=== PATIENT | female | born 1975 | race Caucasian/White ===

== ENCOUNTER 2023-08-18 11:02 | Inpatient (IN) | payer OTHER, BC ==
[~2023-08-18] VITALS: Ht 175.3 cm; Wt 96.8 kg
[2023-08-18] MEDS ORDERED: LOSA50TA28 PO (11:17)
[2023-08-18] MEDS ORDERED: LEVO137T2 PO (11:17)
[2023-08-18 11:22] LABS: BASO % 0.6 % (0.0-1.0); EOS # 0.2 10^3/uL (0.0-0.5); HEMATOCRIT 37.1 % (36.0-47.0); HEMOGLOBIN 12.2 g/dl (12.0-15.5); LYMPH # 1.1 10^3/uL (1.5-5.0); LYMPH % 21.4 % (24.0-44.0); MEAN CORPUSCULAR HEMOGLOBIN 28.2 pg (27.0-33.0); MEAN CORPUSCULAR HGB CONC 32.9 g/dl (32.0-36.5); MEAN CORPUSCULAR VOLUME 85.7 fl (80.0-96.0); MONO # 0.4 10^3/uL (0.0-0.8); MONO % 7.1 % (2.0-8.0); NEUTROPHILS # 3.6 10^3/uL (1.5-8.5); NEUTROPHILS % 67.7 % (36.0-66.0); PLATELET COUNT, AUTOMATED 198 10^3/uL (150-450); RED BLOOD COUNT 4.33 10^6/uL (4.00-5.40); WHITE BLOOD COUNT 5.3 10^3/uL (4.0-10.0)
[2023-08-18 11:35] LABS: INR 1.11; PROTHROMBIN TIME 13.9 SECONDS (12.5-14.5)
[2023-08-18 11:36] LABS: PARTIAL THROMBOPLASTIN TIME 26.1 SECONDS (24.8-34.2)
[2023-08-18 11:50] LABS: CK-MB VALUE MASS 1.5 NG/ML (<3.6); LIPASE 36 U/L (12-53)
[2023-08-18 11:51] LABS: AMYLASE 62 U/L (30-118); CPK CREATINE PHOSPHOKINASE 95 U/L (34-145); MB/CK RELATIVE INDEX 1.57 (< OR =4)
[2023-08-18 11:52] LABS: ALBUMIN 3.8 G/DL (3.2-5.2); ALKALINE PHOSPHATASE 94 U/L (46-116); ALT/SGPT 25 U/L (7.0-40); AST/SGOT 22 U/L (<34); BILIRUBIN,DIRECT 0.3 MG/DL (<0.4); BILIRUBIN,TOTAL 0.8 MG/DL (0.3-1.2); BLOOD UREA NITROGEN 13 MG/DL (9-23); CALCIUM LEVEL 8.4 MG/DL (8.5-10.1); CARBON DIOXIDE LEVEL 27 MMOL/L (20-31); CHLORIDE LEVEL 111 MMOL/L (98-107); CREATININE FOR GFR 0.74 MG/DL (0.55-1.30); GLOMERULAR FILTRATION RATE > 60.0 (>58); GLUCOSE, FASTING 83 MG/DL (60-100); MAGNESIUM LEVEL 2.3 MG/DL (1.8-2.4); POTASSIUM SERUM 4.1 MMOL/L (3.5-5.1); SODIUM LEVEL 142 MMOL/L (136-145); TOTAL PROTEIN 6.5 G/DL (5.7-8.2)
[2023-08-18] MEDS ORDERED: ACETAMINOPHEN TAB 650MG DOSE (2X325MG) PO PRN (12:35)
[2023-08-18 12:45] LABS: RSV AMPLIFICATION NEGATIVE (NEGATIVE)
[2023-08-18] MEDS ORDERED: MED REC IN PROGRESS XX SCH (13:00)
[2023-08-18] MEDS ORDERED: MED REC CURRENTLY UNOBTAINABLE XX SCH (13:35)
[2023-08-18] MEDS ORDERED: HOME MED LIST COMPLETE! XX SCH (14:15)
[2023-08-18 16:50] VITALS: BP 138/91; TEMP 98.4; O2SAT 98
[2023-08-18 20:25] VITALS: BP 117/63; TEMP 97.4; O2SAT 95
[2023-08-18 23:34] VITALS: BP 108/55; TEMP 97.3; O2SAT 99
[2023-08-19 04:27] VITALS: BP 118/74; TEMP 98; O2SAT 97
[2023-08-19] MEDS: LEVOTHYROXINE 137MCG TABLET (0.137MG) PO SCH (05:50)
[2023-08-19 05:58] LABS: HEMATOCRIT 34.6 % (36.0-47.0); HEMOGLOBIN 11.5 g/dl (12.0-15.5)
[2023-08-19 06:32] LABS: BLOOD UREA NITROGEN 18 MG/DL (9-23); CALCIUM LEVEL 8.4 MG/DL (8.5-10.1); CARBON DIOXIDE LEVEL 23 MMOL/L (20-31); CHLORIDE LEVEL 107 MMOL/L (98-107); CREATININE FOR GFR 0.74 MG/DL (0.55-1.30); GLOMERULAR FILTRATION RATE > 60.0 (>58); GLUCOSE, FASTING 129 MG/DL (60-100); POTASSIUM SERUM 4.1 MMOL/L (3.5-5.1); SODIUM LEVEL 138 MMOL/L (136-145)
[2023-08-19 08:00] VITALS: BP 127/80; TEMP 98.2; O2SAT 96
[2023-08-19] MEDS: LOSARTAN 50MG TABLET PO SCH (09:54)
[2023-08-19 12:00] VITALS: BP 118/66; TEMP 98.2; O2SAT 97
[2023-08-19 16:00] VITALS: BP 134/81; TEMP 97.6; O2SAT 94
[2023-08-19 19:34] VITALS: BP 123/59; TEMP 98.4; O2SAT 95
[2023-08-19 23:38] VITALS: BP 114/61; TEMP 97.7; O2SAT 99
[2023-08-20 04:21] VITALS: BP 129/75; TEMP 97.9; O2SAT 98
[2023-08-20] MEDS: LEVOTHYROXINE 137MCG TABLET (0.137MG) PO SCH (05:00)
[2023-08-20 08:14] VITALS: BP 139/91; TEMP 97.8; O2SAT 98
[2023-08-20 08:16] VITALS: BP 139/91
[2023-08-20] MEDS: LOSARTAN 50MG TABLET PO SCH (08:16)
[2023-08-20 15:29] VITALS: BP 129/86
== END 2023-08-20 15:40 | disposition home or self-care (01) | DRG 207 ==
LOC: M ED 11:02 → M ED INP 12:31 → M ICU 17:06
PROVIDERS: ADMIT Internal Medicine Pulmonary Disease; ATTEND Internal Medicine Pulmonary Disease
PROC: B246ZZZ Ultrasonography of Right and Left Heart (ICD-10-PCS; principal; 2023-08-18)
DX: S26.91XA Contusion of heart, unspecified with or without hemopericardium, initial encounter (principal); I95.9 Hypotension, unspecified; R00.1 Bradycardia, unspecified; S40.011A Contusion of right shoulder, initial encounter; V43.62XA Car passenger injured in collision with other type car in traffic accident, initial encounter; E03.9 Hypothyroidism, unspecified; M54.2 Cervicalgia; M54.50 Low back pain, unspecified; Z79.890 Hormone replacement therapy; Z79.899 Other long term (current) drug therapy; Z88.2 Allergy status to sulfonamides; Z20.822 Contact with and (suspected) exposure to COVID-19; Z85.850 Personal history of malignant neoplasm of thyroid; Z68.33 Body mass index [BMI] 33.0-33.9, adult